=== PATIENT | female | born 1965 | race Two or more races ===

== ENCOUNTER 2022-03-16 10:06 | Outpatient (CLI) | payer OTHER | END 2022-03-16 23:59 | disposition home or self-care (01) | LOC: LAB 10:06 | PROVIDERS: ATTEND Specialist | DX: Z01.812 Encounter for preprocedural laboratory examination (principal); Z20.822 Contact with and (suspected) exposure to COVID-19 | CPT/HCPCS: U0003; C9803 ==

== ENCOUNTER 2022-03-22 07:38 | Day surgery (SDC) | payer OTHER ==
[2022-03-22] MEDS ORDERED: BUPIVACAINE 0.5 % PF 150 MG/30 ML VIAL ONE (08:12)
[2022-03-22] MEDS ORDERED: LIDOCAINE 1% INJ 50 ML MDV IJ ONE (08:12)
[2022-03-22] MEDS ORDERED: ANESTHESIA TRAY IN PYXIS 1 EA TRAY MC ONE (08:56)
[2022-03-22] MEDS ORDERED: FENTANYL PF 100MCG/2ML AMPUL ONE (09:02)
[2022-03-22] MEDS ORDERED: HYDROCODONE/APAP 5/325MG TABLET ONE (11:28)
[2022-03-22] MEDS ORDERED: HYDROCODONE/APAP 5/325MG TABLET PO PRN ×2 (11:30)
== END 2022-03-22 12:10 | disposition home or self-care (01) ==
LOC: DS 07:38
PROVIDERS: ATTEND Specialist
DX: G56.01 Carpal tunnel syndrome, right upper limb (principal); M65.311 Trigger thumb, right thumb
CPT/HCPCS: 64721; 26055; J3490; J3010; A4565; A6402; J0330; J0690; J1100; J1885; J2405; J2704; J7030